=== PATIENT | female | born 1935 | race Caucasian/White ===

== ENCOUNTER 2021-05-18 17:08 | Emergency (ER) | payer MEDICARE, MEDICAID ==
[2021-05-18 18:02] LABS: ANION GAP 8.9 meq/L (7-15); CHLORIDE,CL 101 mmol/L (98-107); SODIUM,NA 138 mmol/L (136-145)
[2021-05-18 18:04] LABS: CORONAVIRUS COVID-19 NAA NEGATIVE (NEGATIVE); RESPIRATORY SYNCYTIAL VIR NAA NEGATIVE (NEGATIVE)
[2021-05-18] MEDS ORDERED: Sodium Chloride 0.9% 10 ML Syringe FLUSH PRN (18:08)
== END 2021-05-18 20:53 | disposition home or self-care (01) ==
LOC: LL.ED 17:08
DX: R53.1 Weakness (principal); E83.42 Hypomagnesemia; Z20.822 Contact with and (suspected) exposure to COVID-19
CPT/HCPCS: 0241U; 36415; 71045; 80053; 80307; 81001; 83735; 84484; 85025; 85379; 87040; 87086; 93005; 96365; 96366; 99285-25; J3475

== ENCOUNTER 2022-02-23 15:50 | Emergency (ER) | payer MEDICARE, MEDICAID ==
[2022-02-23] MEDS ORDERED: hydrALAZINE 20 MG/ML SDV IVPUSH ONE (15:56)
[2022-02-23] MEDS ORDERED: Sodium Chloride 0.9% 10 ML Syringe FLUSH PRN ×2 (15:57)
[2022-02-23] MEDS ORDERED: cloNIDine 0.1 MG Tab PO ONE (16:16)
[2022-02-23 16:23] LABS: ANION GAP 11.8 meq/L (7-15)
[2022-02-23] MEDS ORDERED: Magnesium Sulfate/Water 2 GM in Premix Bag 1 BAG IV ONE (16:35)
[2022-02-23] MEDS ORDERED: Potassium Bicarbonate/Cit Ac 20 MEQ Effervescent Tab PO ONE (16:36)
== END 2022-02-23 18:45 | disposition home or self-care (01) ==
LOC: LL.ED 15:50
DX: I16.0 Hypertensive urgency (principal); E83.42 Hypomagnesemia; I10 Essential (primary) hypertension; E11.9 Type 2 diabetes mellitus without complications; Z88.8 Allergy status to other drugs, medicaments and biological substances; Z79.899 Other long term (current) drug therapy
CPT/HCPCS: 36415; 80053; 83735; 85025; 96374; 96375; 99215; 99284; A9270; J0360; J3475; J3490

== ENCOUNTER 2022-03-20 18:20 | Emergency (ER) | payer MEDICARE, MEDICAID ==
[2022-03-20] MEDS: cloNIDine 0.1 MG Tab PO ONE (18:55)
[2022-03-20] MEDS: Labetalol 20 MG/4 ML Syringe IVPUSH ONE (18:56)
[2022-03-20 19:25] LABS: CHLORIDE,CL 99 mmol/L (98-107); ESTIMATED GFR 61 mL/min (>=60); SODIUM,NA 137 mmol/L (136-145)
[2022-03-21] MEDS: Labetalol 20 MG/4 ML Syringe IVPUSH PRN (03:00)
[2022-03-21] MEDS: Acetaminophen 325 MG Tab PO ONE (05:17)
== END 2022-03-21 08:15 | disposition home or self-care (01) ==
LOC: LL.ED 18:20
DX: I16.0 Hypertensive urgency (principal); I10 Essential (primary) hypertension; I95.1 Orthostatic hypotension; E11.9 Type 2 diabetes mellitus without complications; Z91.199 Patient's noncompliance with other medical treatment and regimen due to unspecified reason; Z88.8 Allergy status to other drugs, medicaments and biological substances; Z79.899 Other long term (current) drug therapy; Z90.49 Acquired absence of other specified parts of digestive tract
CPT/HCPCS: 36415; 80053; 82947; 96374; 99283-25; 99284; A9270-GY; J3490

== ENCOUNTER 2022-03-21 17:38 | Emergency (ER) | payer MEDICARE, MEDICAID ==
[2022-03-21] MEDS ORDERED: Labetalol 20 MG/4 ML Syringe IVPUSH ONE ×3 (17:49→20:49)
[2022-03-21] MEDS ORDERED: Lisinopril 10 MG Tab PO ONE (17:49)
[2022-03-21] MEDS ORDERED: Sodium Chloride 0.9% 10 ML Syringe FLUSH PRN (17:51)
[2022-03-21 18:20] LABS: ANION GAP 11.1 meq/L (7-15); CHLORIDE,CL 100 mmol/L (98-107); ESTIMATED GFR 59 mL/min (>=60); SODIUM,NA 137 mmol/L (136-145)
[2022-03-21] MEDS ORDERED: Potassium Bicarbonate/Cit Ac 20 MEQ Effervescent Tab PO ONE (18:40)
[2022-03-21] MEDS ORDERED: Magnesium Sulfate/Water 2 GM in Premix Bag 1 BAG IV ONE (19:22)
[2022-03-21] MEDS ORDERED: amLODIPine 5 MG Tab PO ONE (19:30)
[2022-03-21] MEDS ORDERED: Nitroglycerin 0.4 MG Tab.SL SL ONE (20:13)
[2022-03-21] MEDS ORDERED: cloNIDine 0.1 MG Tab PO ONE (21:29)
[2022-03-21] MEDS ORDERED: hydrALAZINE 20 MG/ML SDV IVPUSH ONE (21:39)
[2022-03-21] MEDS ORDERED: Acetaminophen 325 MG Tab PO ONE (22:41)
== END 2022-03-21 23:30 | disposition home or self-care (01) ==
LOC: LL.ED 17:38
DX: I10 Essential (primary) hypertension (principal); E78.00 Pure hypercholesterolemia, unspecified; E11.9 Type 2 diabetes mellitus without complications; I16.0 Hypertensive urgency; I95.1 Orthostatic hypotension; Z88.8 Allergy status to other drugs, medicaments and biological substances; Z79.899 Other long term (current) drug therapy; Z91.199 Patient's noncompliance with other medical treatment and regimen due to unspecified reason; Z90.49 Acquired absence of other specified parts of digestive tract
CPT/HCPCS: 36415; 80048; 81001; 83735; 84484; 85025; 93005; 93010; 96365; 96366; 96375; 96376; 99284; 99284-25; A9270-GY; J0360; J3475; J3490

== ENCOUNTER 2022-03-25 08:39 | Emergency (ER) | payer MEDICARE, MEDICAID ==
[2022-03-25] MEDS ORDERED: Sodium Chloride 0.9% 10 ML Syringe FLUSH PRN (08:50)
[2022-03-25] MEDS: cloNIDine 0.1 MG Tab PO ONE (09:06)
[2022-03-25] MEDS: Labetalol 20 MG/4 ML Syringe IVPUSH ONE (09:06)
[2022-03-25 17:26] VITALS: BP 116/58; PULSE 82
== END 2022-03-25 10:25 | disposition home or self-care (01) ==
LOC: SUPCPDRO 08:39 → LL.ED 08:39
DX: I10 Essential (primary) hypertension (principal); Z88.8 Allergy status to other drugs, medicaments and biological substances; Z79.899 Other long term (current) drug therapy; Z79.84 Long term (current) use of oral hypoglycemic drugs
CPT/HCPCS: 99283; 99284